=== PATIENT | female | born 1995 | race American Indian/Alaskan Native ===

== ENCOUNTER 2018-07-25 16:05 | Emergency (ER) | payer BC ==
[2018-07-25 16:19] VITALS: BP 132/77
[2018-07-25 17:52] LABS: HCG Qualitative,Urine Positive (Negative)
[2018-07-25 17:54] LABS: Bilirubin,Urine NEG (Negative); Blood,Urine NEG (Negative); Color,Urine Yellow (Yellow); Mucus,Urine FEW /HPF; Protein,Urine <15 mg/dL mg/dL (Negative)
== END 2018-07-25 20:35 | disposition left against medical advice (07) ==
LOC: ED 16:05
DX: R10.9 Unspecified abdominal pain (principal); Z53.21 Procedure and treatment not carried out due to patient leaving prior to being seen by health care provider
CPT/HCPCS: 81001; 81025

== ENCOUNTER 2018-08-21 09:01 | Emergency (ER) | payer BC, MEDICARE ==
--- NOTE | 2018-08-21 11:49 | Emergency Department Report ---
ED HPI - General Chief complaint: Vaginal Bleeding Stated complaint: 10WKS BLEEDING/CRAMPING Time Seen by Provider: 08/21/18 11:28 Source: patient Mode of arrival: Ambulatory Limitations: No Limitations - History of Present Illness Initial comments: This is a 23-year-old female nontoxic, well nourished in appearance, no acute signs of distress presents to the ED with c/o of vaginal bleeding x1 day. Patient stated yesterday she noticed some spotting this morning x3 occasions and heavier this morning. Patient stated she also has some pelvic cramping. Patient denies any abdominal pain. Patient denies any vaginal discharge or foul odor. Patient denies any nausea, vomiting, chest pain, shortness of breathe , fever, chills, headache, stiff neck, numbness, tingling. Patient denies any urinary symptoms. Patient denies any drug allergies or PMH. Patient stated she follows [facility] but has never had a ultrasound before. MD Complaint: vaginal bleeding -: days(s) (1) Location: pelvis Radiation: none Severity: mild Severity scale (0 -10): 3 Quality: cramping Consistency: intermittent Improves with: none Worsens with: none Associated symptoms: vaginal bleeding. denies: nausea/vomiting, vaginal discharge, abdominal pain, dysuria, headache, vision changes, malaise, dysparuenia, rash, seizure, shortness of breath, syncope, weakness Vaginal bleeding: light :: Yes Number of weeks : 10 Pre-khurram care: followed by OB - Related Data Previous Rx's Medication Instructions Recorded Last Taken Type Nitrofurantoin Beadle/M-Cryst 100 mg PO Q12HR #14 capsule 08/21/18 Unknown Rx [Macrobid CAP] 21/Iron Fu/Folic Acid 1 each PO DAILY #30 tablet 08/21/18 Unknown Rx [ Complete Caplet] Allergies Allergy/AdvReac Type Severity Reaction Status Date / Time shellfish derived Allergy Swelling Verified 08/21/18 09:44 ED Review of Systems ROS: Stated complaint: 10WKS BLEEDING/CRAMPING Other details as noted in HPI Constitutional: denies: chills, fever Eyes: denies: eye pain, eye discharge, vision change ENT: denies: ear pain, throat pain Respiratory: denies: cough, shortness of breath, wheezing Cardiovascular: denies: chest pain, palpitations Endocrine: no symptoms reported Gastrointestinal: denies: abdominal pain, nausea, diarrhea Genitourinary: abnormal menses. denies: urgency, dysuria, discharge Musculoskeletal: denies: back pain, joint swelling, arthralgia Skin: denies: rash, lesions Neurological: denies: headache, weakness, paresthesias Psychiatric: denies: anxiety, depression Hematological/Lymphatic: denies: easy bleeding, easy bruising ED Past Medical Hx - Past Medical History Previous Medical History?: No - Surgical History Past Surgical History?: Yes Additional Surgical History: Hernia rep - Social History Smoking Status: Never Smoker Substance Use Type: None - Medications Home Medications: Home Medications Medication Instructions Recorded Confirmed Last Taken Type Nitrofurantoin Beadle/M-Cryst 100 mg PO Q12HR #14 capsule 08/21/18 Unknown Rx [Macrobid CAP] 21/Iron Fu/Folic Acid 1 each PO DAILY #30 tablet 08/21/18 Unknown Rx [ Complete Caplet] ED Physical Exam - General Limitations: No Limitations General appearance: alert, in no apparent distress - Head Head exam: Present: atraumatic, normocephalic - Eye Eye exam: Present: normal appearance - ENT ENT exam: Present: mucous membranes moist - Neck Neck exam: Present: normal inspection - Respiratory Respiratory exam: Present: normal lung sounds bilaterally. Absent: respiratory distress, wheezes, rales, rhonchi, stridor, chest wall tenderness, accessory muscle use, decreased breath sounds, prolonged expiratory - Cardiovascular Cardiovascular Exam: Present: regular rate, normal rhythm, normal heart sounds. Absent: bradycardia, tachycardia, irregular rhythm, systolic murmur, diastolic murmur, rubs, gallop - GI/Abdominal GI/Abdominal exam: Present: soft, normal bowel sounds. Absent: distended, tenderness, guarding, rebound, rigid, diminished bowel sounds - Extremities Exam Extremities exam: Present: normal inspection, full ROM, normal capillary refill. Absent: tenderness - Back Exam Back exam: Present: normal inspection, full ROM. Absent: tenderness, CVA tenderness (R), CVA tenderness (L), paraspinal tenderness, vertebral tenderness - Neurological Exam Neurological exam: Present: alert, oriented X3, normal gait - Psychiatric Psychiatric exam: Present: normal affect, normal mood - Skin Skin exam: Present: warm, dry, intact, normal color. Absent: rash ED Course Vital Signs 08/21/18 09:44 Temperature 99.2 F Pulse Rate 91 H Respiratory 18 Rate Blood Pressure 133/69 O2 Sat by Pulse 99 Oximetry - Reevaluation(s) Reevaluation #1: 08/21/18 11:49 Patient is speaking in full sentences with no signs of distress noted. ED Medical Decision Making - Lab Data Result diagrams: 08/21/18 11:45 - Medical Decision Making This is a 23-year-old female presents with threatened miscarriage and UTI. Patient is stable and was examined by me. Normal abdominal exam. US OB obtained and dictated by the radiologist. Ua obtained. Quantative serum test obtained. Patient notified of the US report with no questions noted by the patient. RH factor positive. Labs within normal limits. Patient was referred to Follow-up with a [facility] in 3-5 days or if symptoms worsen and continue return to emergency room as soon as possible. At time of discharge, the patient does not seem toxic or ill in appearance. No acute signs of distress noted. Patient agrees to discharge treatment plan of care. No further questions noted by the patient. Critical care attestation.: If time is entered above; I have spent that time in minutes in the direct care of this critically ill patient, excluding procedure time. ED Disposition Clinical Impression: Threatened miscarriage UTI (urinary tract infection) Qualifiers: Urinary tract infection type: site unspecified Hematuria presence: with hematuria Qualified Code(s): N39.0 - Urinary tract infection, site not specified Disposition: DC-01 TO HOME OR SELFCARE Is pt being admited?: No Does the pt Need Aspirin: No Condition: Stable Instructions: Threatened Miscarriage (ED), Urinary Tract Infection in Women (ED ) Additional Instructions: Follow-up with a primary care/OBGYN doctor in 3-5 days or if symptoms worsen and continue return to emergency room as soon as possible. Prescriptions: Nitrofurantoin Beadle/M-Cryst [Macrobid CAP] 100 mg PO Q12HR #14 capsule 21/Iron Fu/Folic Acid [ Complete Caplet] 1 each PO DAILY #30 tablet Referrals: MARCUS MERRILL MD [Primary Care Provider] - 3-5 Days MIKHAIL CASTELLANO MD [Staff Physician] - 3-5 Days [facility] [Outside] - 3-5 Days [facility] [Provider Group] - 3-5 Days Forms: Work/School Release Form(ED)
[2018-08-21 11:59] LABS: Basophils % (Auto) 0.4 % (0.0-1.8); Eosinophils # (Auto) 0.2 K/mm3 (0.0-0.4); Eosinophils % (Auto) 2.1 % (0.0-4.3); Hematocrit 35.5 % (30.3-42.9); Hemoglobin 11.4 gm/dl (10.1-14.3); Lymphocytes % (Auto) 18.3 % (13.4-35.0); Mean Corpuscular HGB Conc 32 % (30-34); Mean Corpuscular Hemoglobin 26 pg (28-32); Mean Corpuscular Volume 80 fl (79-97); Monocytes # (Auto) 0.8 K/mm3 (0.0-0.8); Monocytes % (Auto) 6.9 % (0.0-7.3); Platelet Count 251 K/mm3 (140-440); Red Blood Count 4.41 M/mm3 (3.65-5.03); Red Cell Distribution Width 14.2 % (13.2-15.2)
[2018-08-21 13:21] LABS: Bacteria,Urine 1+ /HPF (Negative); Bilirubin,Urine NEG (Negative); Blood,Urine LG (Negative); Color,Urine Yellow (Yellow); Mucus,Urine FEW /HPF; Protein,Urine <15 mg/dL mg/dL (Negative)
--- NOTE | 2018-08-21 14:59 | Ultrasound Report ---
ULTRASOUND OB LESS THAN 14 WEEKS FETUS History: Vaginal bleeding. Technique: Transabdominal ultrasound. Findings: The uterus measures 10 x 9 x 9 cm. An intrauterine gestational sac containing a small pole and yolk sac is identified. Heart rate measures 166 beats per minutes. Amniotic fluid volume appears normal. The placenta is not yet identified. Greenevers-rump length measures 31.1 mm which correlates with a 10 week 0 day . The right ovary measures 3.4 x 2.8 x 2.9 cm. A 2.1 cm right ovarian cyst is identified. The left ovary measures 3.0 x 1.9 x 1.9 cm. No focal abnormality. Impression: Viable, single intrauterine as described. Right ovarian cyst.
[2018-08-21 16:53] VITALS: BP 143/74
== END 2018-08-21 16:40 | disposition home or self-care (01) ==
LOC: ED 09:01
DX: O20.0 Threatened abortion (principal); O23.41 Unspecified infection of urinary tract in pregnancy, first trimester; Z3A.10 10 weeks gestation of pregnancy; Z91.013 Allergy to seafood
CPT/HCPCS: 36415; 76801; 81001; 84702; 85025; 86850; 86900; 86901; 87086; 99284

== ENCOUNTER 2019-02-21 12:03 | Inpatient (IN) | payer MEDICAID ==
[2019-02-21] MEDS ORDERED: LACTATED RINGERS 500 ML IV ONE (12:17)
[2019-02-21 13:30] LABS: Bilirubin,Urine NEG (Negative); Blood,Urine MOD (Negative); Color,Urine Yellow (Yellow); Mucus,Urine FEW /HPF; Urobilinogen,Urine < 2.0 mg/dL (<2.0)
[2019-02-21] MEDS ORDERED: XYLOCAINE 2% INFILTRATI ONE (14:12)
[2019-02-21] MEDS ORDERED: BRETHINE SUB-Q PRN (14:12)
[2019-02-21] MEDS ORDERED: SUBLIMAZE IV PRN (14:12)
[2019-02-21] MEDS ORDERED: MINERAL OIL PO PRN (14:12)
[2019-02-21] MEDS ORDERED: AMPICILLIN/NS 2 GM/100 ML 2 GM/100 ML BAG IV ONE ×2 (14:17→14:21)
--- NOTE | 2019-02-21 14:19 | History and Physical Report ---
History of Present Illness Date of examination: 02/21/19 (pt in active labor @ 36 weeks) History of present illness: EDC Confirmation: 03/21/2019 Gestational Age: 19 5/7 weeks Past History : 3 Term Births: 1 Premature Births: 0 Living Children: 1 Mult. Births: 0 Prev : 0 Elect. Ab: 1 Spont. Ab: 0 Ectopics: 0 # 1 labor: no Hours of labor: 16 Anesthesia type: none Delivery location: [place] Name: Mark # 2 Delivery date: 2016 Delivery type: EAB Comments: Medical Past Medical History: Umbilical hernia Asthma Past Surgical History: Umbilical Hernia(2016) with mesh Family History Summary: Mother (biol.) - Has No Family History of Ovarvian Cancer - Entered On: 10/30/2018 Mother (biol.) - Has No Family History of Colon Cancer - Entered On: 10/30/2018 Mother (biol.) - Has No Family History of Breast Cancer - Entered On: 10/30/2018 Mother (biol.) - Has Family History of Hypertension - Entered On: 10/30/2018 Social History: Patient is single bf x one year. debut age 15, x 10 parters. gardisil Smoking History: Patient has never smoked. 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 debut age 15, x 10 parters. gardisil Smoking History: Patient has never smoked. 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 Infection History HIV Risk Eval: no Genetic History Congenital Heart Defect: Mom: no Dad: no Yesika Disease: Mom: no Dad: no Thalassemia Mom: no Dad: no Neural Tube Defect Mom: no Dad: no Down's Syndrome Mom: no Dad: no Christiano-Sachs Mom: no Dad: no Sickle Cell Disease/Trait Mom: no Dad: no Hemophilia Mom: no Dad: no Muscular Dystrophy Mom: no Dad: no Cystic Fibrosis Mom: no Dad: no [place] Chorea Mom: no Dad: no Mental Retardation Mom: no Dad: no Fragile X Mom: no Dad: no Other Genetic/Chromosomal Disorder Mom: no Dad: no Child w/other defect Mom: no Dad: no Enviromental Exposures Xray Exposure: no Medication, drug, or alcohol use since LMP: no Chemical/Other Exposure: no Exposure to Cat Liter: no Hx of Parvovirus (Fifth Disease): no Active Medications (reviewed today): None Current Allergies (reviewed today): * SHELL FISH (Critical) Past History - Obstetrical History Expected Date of Delivery: 03/21/19 Actual Gestation: 36 Week(s) 0 Day(s) : 3 Para: 1 Hx # Term Pregnancies: 1 Number of Pregnancies: 0 Spontaneous Abortions: 0 Induced : 1 Number of Living Children: 1 Medications and Allergies Allergies Allergy/AdvReac Type Severity Reaction Status Date / Time shellfish derived Allergy Severe Anaphylaxis Verified 12/23/18 19:57 Home Medications Medication Instructions Recorded Confirmed Last Taken Type 21/Iron Fu/Folic Acid 1 each PO DAILY #30 tablet 08/21/18 11/28/18 11/27/18 16:00 Rx [ Complete Caplet] Active Meds: Active Medications Ephedrine Sulfate (Ephedrine Sulfate) 10 mg IV Q2M PRN PRN Reason: Hypotension Fentanyl (Sublimaze) 100 mcg IV Q2H PRN PRN Reason: Labor Pain Lactated Ringer's (Lactated Ringers) 1,000 mls @ 125 mls/hr IV DIRECT ROSANNA Oxytocin/Sodium Chloride (Pitocin/Ns 20 Unit/1000ml Drip) 20 units in 1,000 mls @ 125 mls/hr IV DIRECT ROSANNA Ampicillin Sodium (Polycillin/Ns 2 Gm/100 Ml) 2 gm in 100 mls @ 100 mls/hr IV ONCE ONE; Protocol Stop: 02/21/19 15:16 Ampicillin Sodium (Ampicillin/Ns 1 Gm/50 Ml) 1 gm in 50 mls @ 100 mls/hr IV Q4HR ROSANNA; Protocol Lidocaine (Xylocaine 2%) 20 ml INFILTRATI ONCE ONE Stop: 02/21/19 14:13 Mineral Oil (Mineral Oil) 30 ml PO QHS PRN PRN Reason: Constipation Terbutaline Sulfate (Brethine) 0.25 mg SUB-Q ONCE PRN PRN Reason: Hyperstimulation/Hypertonicity - Vital Signs Vital signs: Vital Signs Temp Pulse Resp BP 98.8 F 129 H 20 134/70 02/21/19 12:23 02/21/19 12:23 02/21/19 12:23 02/21/19 12:23 Temp Pulse Resp BP Pulse Ox 98.8 F 123 H 20 133/60 02/21/19 12:23 02/21/19 13:27 02/21/19 12:23 02/21/19 13:27 - Physical Exam Breasts: Positive: deferred Cardiovascular: Regular rate, Normal S1, Normal S2 Lungs: Positive: Clear to auscultation, Normal air movement Abdomen: Positive: normal appearance, soft, normal bowel sounds. Negative: distention, tenderness Genitourinary (Female): Positive: normal external genitalia Vulva: both: normal Vagina: Positive: normal moisture. Negative: discharge Cervix: Negative: lesion, discharge Uterus: Positive: normal size, normal contour Adnexa: both: normal Anus/Rectum: Positive: normal perianal skin, heme negative. Negative: rectal mass, hemorrhoids Extremities: Positive: normal Deep Tendon Reflex Grade: Normal +2 - Obstetrical FHR: category 1 Uterine Contraction Monitor Mode: External Cervical Dilatation: 6 (rapid chg from Arrival) Cervical Effacement Percentage: 70 station: -1 Uterine Contraction Pattern: Regular Uterine Tone Measurement Phase: Resting Uterine Contraction Intensity: Moderate Results Result Diagrams: 02/21/19 14:25 Abnormal lab results 02/21/19 Range/Units Unknown Urine WBC (Auto) 29.0 H (0.0-6.0) /HPF All other labs normal. HBsAg Screen Negative Negative *1 RPR [A] Reactive Non Reactive *2 Tests: (2) RPR Qn+TP Abs ([id number]) RPR, Quant. [H] 1:16 NonRea<1:1 *3 ! Treponema pallidum Antibodies [A] Positive Negative *4 Tests: (3) Profile I ([id number]) Rubella Antibodies, IgG 1.77 index Immune >0.99 *5 Non-immune <0.90 Equivocal 0.90 - 0.99 Immune >0.99 ABO Grouping A *6 Rh Factor Positive *7 Please note: Prior records for this patient's ABO / Rh type are not available for additional verification. Antibody Screen Negative Negative *8 WBC 9.9 x10E3/uL 3.4-10.8 *9 RBC 3.88 x10E6/uL 3.77-5.28 *10 Hemoglobin [L] 10.0 g/dL 11.1-15.9 *11 Hematocrit [L] 31.2 % 34.0-46.6 *12 MCV 80 fL 79-97 *13 MCH [L] 25.8 pg 26.6-33.0 *14 MCHC 32.1 g/dL 31.5-35.7 *15 RDW 14.2 % 12.3-15.4 *16 Platelets 262 x10E3/uL 150-379 *17 Neutrophils 73 % Not Estab. *18 Lymphs 20 % Not Estab. *19 Monocytes 4 % Not Estab. *20 Eos 3 % Not Estab. *21 Basos 0 % Not Estab. *22 ! Immature Cells <No Reported Value> *23 Neutrophils (Absolute) [H] 7.2 x10E3/uL 1.4-7.0 *24 Lymphs (Absolute) 1.9 x10E3/uL 0.7-3.1 *25 Monocytes(Absolute) 0.4 x10E3/uL 0.1-0.9 *26 Eos (Absolute) 0.3 x10E3/uL 0.0-0.4 *27 Baso (Absolute) 0.0 x10E3/uL 0.0-0.2 *28 ! Immature Granulocytes 0 % Not Estab. *29 ! Immature Grans (Abs) 0.0 x10E3/uL 0.0-0.1 *30 ! NRBC <No Reported Value> *31 Hematology Comments: <No Reported Value> *32 Tests: (4) Thyroid Profile II ([id number]) TSH 0.603 uIU/mL 0.450-4.500 *33 Thyroxine (T4) 11.1 ug/dL 4.5-12.0 *34 T3 Uptake [L] 16 % 24-39 *35 Free Thyroxine Index 1.8 1.2-4.9 *36 Triiodothyronine (T3) [H] 200 ng/dL 71-180 *37 Tests: (5) Thyroxine (T4) Free, Direct, S ([id number]) T4,Free(Direct) 1.25 ng/dL 0.82-1.77 *38 Tests: (6) Panel 951963 ([id number]) HIV Screen 4th Generation wRfx Non Reactive Non Reactive *39 Tests: (7) HCV Ab w/Rflx to Verification ([id number]) ! HCV Ab <0.1 s/co ratio 0.0-0.9 *40 Tests: (8) Comment: ([id number]) ! Comment: SPRCS *41 Non reactive HCV antibody screen is consistent with no HCV infection, unless recent infection is suspected or other evidence exists to indicate HCV infection. Tests: (9) Urine Culture, Routine ([id number]) Urine Culture, Routine Final report *42 Tests: (10) Result ([id number]) ! Result 1 MUG *43 Mixed urogenital rosa maria 50,000-100,000 colony forming units per mL Tests: (11) Triiodothyronine (T3), Free ([id number]) Triiodothyronine (T3), Free 3.1 pg/mL 2.0-4.4 * Assessment and Plan 24yo @ 36 weeks in active labor and PPROM GBS unknown. RPR+ Treated per protocol @ [facility] Orders in EMR
[2019-02-21 14:58] LABS: Hematocrit 30.1 % (30.3-42.9); Hemoglobin 9.4 gm/dl (10.1-14.3); Mean Corpuscular HGB Conc 31 % (30-34); Mean Corpuscular Volume 74 fl (79-97); Platelet Count 275 K/mm3 (140-440); Red Blood Count 4.06 M/mm3 (3.65-5.03); Red Cell Distribution Width 15.4 % (13.2-15.2)
[2019-02-21] MEDS ORDERED: PITOCin/NS 20 UNIT/1000ML DRIP 20 UNITS/1,000 ML BAG IV SCH (15:00)
[2019-02-21] MEDS ORDERED: LACTATED RINGERS 1,000 ML IV SCH (15:00)
[2019-02-21] MEDS ORDERED: PERCOCET 5/325 PO PRN (16:00)
[2019-02-21] MEDS ORDERED: TUCKS PAD TP PRN (16:00)
[2019-02-21] MEDS ORDERED: MILK OF MAGNESIA PO PRN (16:00)
[2019-02-21] MEDS ORDERED: SODIUM CHLORIDE FLUSH SYRINGE 10 ML IV NR (16:00)
[2019-02-21] MEDS ORDERED: ZOFRAN IV PRN (16:00)
[2019-02-21] MEDS ORDERED: TYLENOL PO PRN (16:00)
[2019-02-21] MEDS ORDERED: LANSINOH TP PRN (16:00)
[2019-02-21] MEDS ORDERED: PHENERGAN PO PRN (16:00)
[2019-02-21] MEDS ORDERED: DULCOLAX PR PRN (16:00)
[2019-02-21] MEDS ORDERED: BENADRYL PO PRN (16:00)
--- NOTE | 2019-02-21 16:14 | Procedure Note ---
OB Delivery Note - Delivery Date of Delivery: 02/21/19 Loom Repairer: RIGO DANIELLE (precipitous delivery) Estimated blood loss: 300cc - Vaginal Delivery presentation: vertex Delivery position: OA Intrapartum events: labor-<37 weeks, precipitous labor- <3hr, other(please specify) (maternal syphilis) Delivery induction: none Delivery monitor: external FHT, external uterine Route of delivery: Delivery placenta: spontaneous Delivery cord: 3 umbilical vessels Episiotomy: none Delivery laceration: none Anesthesia: none Delivery comments: Called urgently to LDR Anticipate Delivery. NICU team present due to prematurity live born female over intact perineum Cord blood obtained Placenta and membrane delivered complete and intact, 3 vessel cord Pit IVFs 6/8, EBL 300, Wgt 5-15 Mom and baby remain LDR stable. - Infant A at 1 minute: 6 at 5 minutes: 8 Infant Gender: Female (wgt 5-15)
[2019-02-21] MEDS: IBUPROFEN PO SCH ×2 (17:28→23:49)
[2019-02-21] MEDS ORDERED: AMPICILLIN/NS 1 GM/50 ML 1 GM/50 ML BAG IV SCH (18:00)
[2019-02-22] MEDS: IBUPROFEN PO SCH ×4 (05:24→23:15)
[2019-02-22] MEDS ORDERED: BOOSTRIX IM ONE (06:00)
[2019-02-22] MEDS ORDERED: M-M-R II VACCINE SUB-Q ONE (06:00)
--- NOTE | 2019-02-22 08:54 | Progress Note ---
Assessment and Plan PPD 1. Fundus firm, ML, vaginal bleeding is minimal. Patient reports feeling well, no complaints, reports pain is well controlled with medications. VSSAF. Continue pathway. Subjective - Subjective Date of service: 02/22/19 Principal diagnosis: PPD1 Patient reports: appetite normal, voiding normally, pain well controlled, ambulating normally Objective - Vital Signs Latest vital signs: Vital Signs Temp Pulse Resp BP BP Pulse Ox 02/22/19 00:41 98.4 F 82 20 114/50 96 02/21/19 20:46 99.3 F 101 H 20 120/57 96 02/21/19 16:37 98.8 F 02/21/19 16:21 129 H 16 125/62 100 02/21/19 15:33 130 H 138/57 02/21/19 15:18 117 H 142/66 02/21/19 15:06 134 H 144/70 02/21/19 14:47 126 H 137/70 02/21/19 14:35 125 H 131/67 02/21/19 13:27 123 H 133/60 02/21/19 12:24 123 H 134/70 02/21/19 12:23 98.8 F 123 H 20 130/65 134/70 Intake and Output 02/21/19 02/22/19 02/22/19 23:59 07:59 15:59 Intake Total 240 Output Total 400 400 Balance -400 -160 Intake: Oral 240 Output: Urine 400 400 Void 400 400 Other: Total, Intake Amount 240 Total, Output Amount 400 400 - Exam Breasts: Present: normal Cardiovascular: Present: Regular rate, Normal S1, Normal S2 Lungs: Present: Clear to auscultation Abdomen: Present: normal appearance, soft, normal bowel sounds Uterus: Present: normal, firm Extremities: Present: normal Incision: Present: normal, dry, intact - Labs Labs: Abnormal lab results 02/21/19 02/21/19 02/22/19 Range/Units 14:25 Unknown 05:28 WBC 15.1 H (4.5-11.0) K/mm3 Hgb 9.4 L 8.0 L (10.1-14.3) gm/dl Hct 30.1 L 25.0 L (30.3-42.9) % MCV 74 L (79-97) fl MCH 23 L (28-32) pg RDW 15.4 H (13.2-15.2) % Urine WBC (Auto) 29.0 H (0.0-6.0) /HPF
[2019-02-22] MEDS: FEOSOL PO SCH (23:15)
[2019-02-23] MEDS: IBUPROFEN PO SCH ×2 (04:54→16:12)
--- NOTE | 2019-02-23 08:15 | Discharge Summary ---
Providers - Providers Date of Admission: 02/21/19 14:32 Date of discharge: 02/23/19 Attending physician: ZEUS MACDONALD Primary care physician: JHOANA RAMIREZ Hospitalization Reason for admission: premature labor and delivery Condition: Good Pertinent studies: RPR + 1:4, post delivery H&H 8.0/25.0 (asymptomatic anemia from blood loss, acute) Procedures: Hospital course: uncomplicated Disposition: DC- TO HOME OR SELFCARE - Discharge Diagnoses (1) Normal spontaneous vaginal delivery Status: Acute (2) Syphilis of mother during Status: Acute Core Measure Documentation - Palliative Care Palliative Care/ Comfort Measures: Not Applicable - Core Measures Any of the following diagnoses?: none Exam - Physical Exam Narrative exam: Pt reports all members of the care team are listening to her concerns and all of her preferences have been addressed. She declines any additional needs at the time of assessment. - Constitutional Vitals: Temp Pulse Resp BP Pulse Ox 98.3 F 83 18 126/78 98 02/23/19 08:03 02/23/19 08:03 02/23/19 08:03 02/23/19 08:03 02/23/19 08:03 General appearance: Present: no acute distress, well-nourished - EENT Eyes: Present: PERRL ENT: hearing intact, clear oral mucosa - Neck Neck: Present: supple, normal ROM - Respiratory Respiratory effort: normal Respiratory: bilateral: CTA - Cardiovascular Heart Sounds: Present: S1 & S2. Absent: rub, click - Extremities Extremities: pulses symmetrical, No edema Peripheral Pulses: within normal limits - Abdominal General gastrointestinal: Present: soft, non-tender, non-distended, normal bowel sounds Female genitourinary: Present: normal - Integumentary Integumentary: Present: clear, warm, dry - Musculoskeletal Musculoskeletal: gait normal, strength equal bilaterally - Psychiatric Psychiatric: appropriate mood/affect, intact judgment & insight - Neurologic Neurologic: CNII-XII intact, moves all extremities - Additional findings Additional findings: , lochia scant, fundus firm Plan Activity: no restrictions Diet: regular Follow up with: JHOANA RAMIREZ MD [Primary Care Provider] - 03/27/19 (Congratulations! Please call [phone] to schedule your visit in 4 weeks. Call for any questions or concerns. ) Prescriptions: Docusate Sodium [Colace] 100 mg PO BID PRN #60 capsule PRN Reason: Constipation Ferrous Sulfate [Feosol 325 MG tab] 325 mg PO BID #60 tablet
[2019-02-23] MEDS: FEOSOL PO SCH (10:12)
[2019-02-23 19:16] VITALS: BP 137/80
== END 2019-02-23 17:15 | disposition home or self-care (01) | DRG 774 ==
LOC: TRG 12:03 → LD 14:32 → OB 16:16
PROVIDERS: ADMIT Obstetrics & Gynecology; ATTEND Obstetrics & Gynecology
PROC: 10E0XZZ Delivery of Products of Conception, External Approach (ICD-10-PCS; principal; 2019-02-21)
DX: O42.913 Preterm premature rupture of membranes, unspecified as to length of time between rupture and onset of labor, third trimester (principal); O98.12 Syphilis complicating childbirth; O62.3 Precipitate labor; J45.909 Unspecified asthma, uncomplicated; O99.314 Alcohol use complicating childbirth; O99.52 Diseases of the respiratory system complicating childbirth; Z3A.36 36 weeks gestation of pregnancy; Z37.0 Single live birth; Z82.49 Family history of ischemic heart disease and other diseases of the circulatory system; Z72.89 Other problems related to lifestyle; Z91.013 Allergy to seafood; D62 Acute posthemorrhagic anemia; O90.81 Anemia of the puerperium
CPT/HCPCS: 36415; 81001; 85014; 85018; 85027; 86592; 86593; 86762; 86780; 86850; 86900; 86901; 88307; G0378; J0290; J2590; J7120

== ENCOUNTER 2019-09-06 13:43 | Emergency (ER) | payer MEDICAID ==
[2019-09-06 14:10] VITALS: BP 145/82
--- NOTE | 2019-09-06 14:35 | Event Note ---
ED Screening Note Date of service: 09/06/19 Time: 14:31 ED Screening Note: 24 y/o female c/o dizziness .LAWSON, V/N. Never followed up with a specialist. LMP 08/21/19 This initial assessment/diagnostic orders/clinical plan/treatment(s) is/are subject to change based on patients health status, clinical progression and re- assessment by fellow clinical providers in the ED. Further treatment and workup at subsequent clinical providers discretion. Patient/guardian urged not to elope from the ED as their condition may be serious if not clinically assessed and managed. Initial orders include:
--- NOTE | 2019-09-06 15:23 | Emergency Department Report ---
Chief Complaint: Dizziness Stated Complaint: VOMITIN/LIGHT HEADED Time Seen by Provider: 09/06/19 14:31 - HPI History of Present Illness: Ms. Wilkins is a 24 yo female who presents with lightheadedness and nausea for 2 days. Mild symptoms. Desires referral to neurologist for 2 years of headaches. I performed a medical screening examination. No evidence of acute emergent condition. I suspect early viral syndrome. Recommended supportive care. - Exam Vital Signs: Vital Signs 09/06/19 09/06/19 14:04 14:28 Temperature 98.4 F 98.4 F Pulse Rate 73 73 Respiratory 16 16 Rate Blood Pressure 145/82 145/82 O2 Sat by Pulse 98 98 Oximetry MSE screening note: Focused history and physical exam performed. Due to findings the following was ordered: ED Disposition for MSE Clinical Impression: Chronic headache Disposition: Z- MED SCREENING EXAM-LEFT Is pt being admited?: No Does the pt Need Aspirin: No Condition: Stable Referrals: BRITTANY ADEN MD [Staff Physician] - 3-5 Days
== END 2019-09-06 15:40 | disposition left against medical advice (07) ==
LOC: ED 13:43
DX: R51 Headache (principal); R42 Dizziness and giddiness; R11.0 Nausea
CPT/HCPCS: 99282

== ENCOUNTER 2021-04-26 00:06 | Emergency (ER) | payer BC, MEDICAID ==
[2021-04-26] MEDS ORDERED: IBUPROFEN 800 MG TAB PO ONE (01:54)
[2021-04-26] MEDS ORDERED: SULFAMETHOXAZOLE/TRIMETHOPRIM 800/160MG DS TAB PO ONE (01:54)
[2021-04-26] MEDS ORDERED: ONDANSETRON 4 MG ODT TAB PO ONE (01:54)
[2021-04-26] MEDS ORDERED: oxyCODONE /ACETAMINOPHEN 5-325MG TAB PO ONE (01:54)
[2021-04-26] MEDS ORDERED: LIDOCAINE (1%) 10 MG/1 ML VIAL 20 ML MDV INFILTRATI ONE (01:55)
[2021-04-26] MEDS ORDERED: CLINDAMYCIN 150 MG CAP PO ONE (02:54)
--- NOTE | 2021-04-26 03:32 | Emergency Department Report ---
ED General Adult HPI - General Chief complaint: Skin/Abscess/Foreign Body Stated complaint: LUMP ON LT THIGH/PAINFUL Source: patient Mode of arrival: Ambulatory Limitations: No Limitations - History of Present Illness Initial comments: Patient is a 26-year-old -[place] female with a history of asthma who presents to the ED with complaint of acute onset persistent severe painful swollen erythematous maculopapular rash on medial left upper thigh for the last 4 days. Patient states that the pain is worse with any movement or palpation. Patient also states that she has been taking [id number] medications with no relief. Patient denies fever, chills, nausea, vomiting, dizziness, syncope, traumatic injury, numbness and tingling or weakness of lower extremities bilaterally, abdominal pain or fall and low back pain. MD Complaint: swollen painful erythematous rash on left medial upper thigh -: Sudden, days(s) (4) Location: lower extremity (medial left upper thigh) Radiation: non-radiation Severity scale (0 -10): 8 Quality: burning, aching, sharp Consistency: constant Improves with: none Worsens with: movement Associated Symptoms: denies other symptoms, rash (Swollen, erythematous maculopapular rash on medial left upper thigh). denies: confusion, chest pain, cough, diaphoresis, fever/chills, headaches, loss of appetite, malaise, nausea/vomiting, seizure, shortness of breath, syncope, weakness Treatments Prior to Arrival: none - Related Data Previous Rx's Medication Instructions Recorded Last Taken Type 21/Iron Fu/Folic Acid 1 each PO DAILY #30 tablet 08/21/18 11/27/18 16:00 Rx [ Complete Caplet] Docusate Sodium [Colace] 100 mg PO BID PRN #60 capsule 02/22/19 Unknown Rx Ferrous Sulfate [Feosol 325 MG tab] 325 mg PO BID #60 tablet 02/22/19 Unknown Rx Acetaminophen/Codeine [Tylenol 1 tab PO Q6H PRN #12 tab 04/26/21 Unknown Rx /Codeine # 3 tab] Clindamycin [Clindamycin CAP] 300 mg PO Q8HR #60 capsule 04/26/21 Unknown Rx Ibuprofen [Motrin 800 MG tab] 800 mg PO Q8HR PRN #30 tablet 04/26/21 Unknown Rx Ondansetron [Zofran Odt] 4 mg PO Q6HR PRN #15 tab.rapdis 04/26/21 Unknown Rx Sulfamethoxazole/Trimethoprim 1 each PO Q12H #20 tablet 04/26/21 Unknown Rx [Bactrim DS TAB] Allergies Allergy/AdvReac Type Severity Reaction Status Date / Time shellfish derived Allergy Severe Anaphylaxis Verified 12/23/18 19:57 ED Review of Systems ROS: Stated complaint: LUMP ON LT THIGH/PAINFUL Other details as noted in HPI Constitutional: denies: chills, fever Eyes: denies: eye pain, eye discharge, vision change ENT: denies: ear pain, throat pain Respiratory: denies: cough, shortness of breath, wheezing Cardiovascular: denies: chest pain, palpitations Endocrine: no symptoms reported Gastrointestinal: denies: abdominal pain, nausea, diarrhea Genitourinary: denies: urgency, dysuria, discharge Musculoskeletal: arthralgia (Painful, swollen erythematous maculopapular rash on medial left upper thigh), myalgia. denies: back pain, joint swelling Skin: rash (Erythematous maculopapular painful swollen rash on medial left upper thigh). denies: lesions Neurological: denies: headache, weakness, paresthesias Psychiatric: denies: anxiety, depression Hematological/Lymphatic: denies: easy bleeding, easy bruising ED Past Medical Hx - Past Medical History Previous Medical History?: Yes Hx Hypertension: No Hx Diabetes: No Hx Deep Vein Thrombosis: No Hx Renal Disease: No Hx Sickle Cell Disease: No Hx Seizures: No Hx Asthma: Yes (last attack 2010) Hx HIV: No - Surgical History Past Surgical History?: Yes Additional Surgical History: Hernia repair - Social History Smoking Status: Never Smoker Substance Use Type: None - Medications Home Medications: Home Medications Medication Instructions Recorded Confirmed Last Taken Type 21/Iron Fu/Folic Acid 1 each PO DAILY #30 tablet 08/21/18 02/22/19 11/27/18 16:00 Rx [ Complete Caplet] Docusate Sodium [Colace] 100 mg PO BID PRN #60 capsule 02/22/19 Unknown Rx Ferrous Sulfate [Feosol 325 MG tab] 325 mg PO BID #60 tablet 02/22/19 Unknown Rx Acetaminophen/Codeine [Tylenol 1 tab PO Q6H PRN #12 tab 04/26/21 Unknown Rx /Codeine # 3 tab] Clindamycin [Clindamycin CAP] 300 mg PO Q8HR #60 capsule 04/26/21 Unknown Rx Ibuprofen [Motrin 800 MG tab] 800 mg PO Q8HR PRN #30 tablet 04/26/21 Unknown Rx Ondansetron [Zofran Odt] 4 mg PO Q6HR PRN #15 tab.rapdis 04/26/21 Unknown Rx Sulfamethoxazole/Trimethoprim 1 each PO Q12H #20 tablet 04/26/21 Unknown Rx [Bactrim DS TAB] ED Physical Exam - General Limitations: No Limitations General appearance: alert, in no apparent distress - Head Head exam: Present: atraumatic, normocephalic, normal inspection - Eye Eye exam: Present: normal appearance, PERRL, EOMI Pupils: Present: normal accommodation - ENT ENT exam: Present: normal exam, normal orophraynx, mucous membranes moist, TM's normal bilaterally, normal external ear exam - Neck Neck exam: Present: normal inspection, full ROM - Respiratory Respiratory exam: Present: normal lung sounds bilaterally. Absent: respiratory distress, wheezes, rales, rhonchi, stridor, chest wall tenderness, accessory muscle use, prolonged expiratory - Cardiovascular Cardiovascular Exam: Present: normal rhythm, tachycardia, normal heart sounds. Absent: systolic murmur, diastolic murmur, rubs, gallop - GI/Abdominal GI/Abdominal exam: Present: soft, normal bowel sounds. Absent: tenderness, guarding, rebound, hyperactive bowel sounds, hypoactive bowel sounds, organomegaly - Extremities Exam Extremities exam: Present: normal inspection, full ROM, tenderness (Palpable localized medial left upper thigh due to erythematous maculopapular fluctuant rash), normal capillary refill. Absent: pedal edema, joint swelling, calf tenderness - Back Exam Back exam: Present: normal inspection, full ROM. Absent: tenderness, CVA tenderness (L), muscle spasm, paraspinal tenderness, vertebral tenderness - Neurological Exam Neurological exam: Present: alert, oriented X3, CN II-XII intact, normal gait, reflexes normal - Psychiatric Psychiatric exam: Present: normal affect, normal mood - Skin Skin exam: Present: warm, dry, intact, normal color, rash (Swollen, erythematous maculopapular fluctuant severely tender rash on medial left upper thigh), erythema ED Course Vital Signs 04/26/21 04/26/21 00:58 02:58 Temperature 99.6 F Pulse Rate 101 H Respiratory 18 20 Rate Blood Pressure 136/72 [Left] O2 Sat by Pulse 99 Oximetry - I & D Left Upper Medial Thigh Type of Procedure: Simple Site: Medial left upper thigh Blade Size: 11 I & D Procedure: betadine prep, sterile drapes applied, sterile dressing applied, gauze wick placed (Iodoform gauze) Progress: The area was cleaned with normal saline solution. Lidocaine 1% solution was infiltrated around the area for local anesthesia. When anesthesia was fully achieved, scalpel blade #11 was used to incise the area. Copious thick purulent discharge drained from the wound. The wound was then debrided extensively with normal saline and loculations were broken with a hemostat. Iodoform quarter inch gauze was then packed into the wound and the wound dressed appropriately with 4 x 4 gauze and Tegaderm. Patient tolerated the procedure well. ED Medical Decision Making - Medical Decision Making This is a 26-year-old -[place] female with a history of asthma who presents to the ED with complaint of acute onset persistent severe painful swollen erythematous maculopapular rash on medial left upper thigh for the last 4 days. Patient states that the pain is worse with any movement or palpation. Patient also states that she has been taking [id number] medications with no relief. In the ED, patient is alert and oriented x3 and is not in any distress but appears to be in pain. Patient was treated for pain in the ED and was given initial oral antibiotics in the ED. When the pain was well controlled, the area was cleaned with normal saline solution. Lidocaine 1% solution was infiltrated around the area for local anesthesia. When anesthesia was fully achieved, scalpel blade #11 was used to incise the area. Copious thi ck purulent discharge drained from the wound. The wound was then debrided extensively with normal saline and if loculations were broken with a hemostat. Iodoform quarter inch gauze was then packed into the wound and the wound dressed appropriately with 4 x 4 gauze and Tegaderm. Patient tolerated the procedure well. On reevaluation, patient's pain is well controlled medications. Patient was therefore discharged home on pain medications and antibiotics and was advised return to the ED in 2 days for wound recheck and packing removal. Patient was otherwise advised to follow-up with her primary care physician in 7 to 10 days for reevaluation or return to the ED immediately if symptoms get worse. - Differential Diagnosis Cellulitis; folliculitis; cutaneous abscess; Critical care attestation.: If time is entered above; I have spent that time in minutes in the direct care of this critically ill patient, excluding procedure time. ED Disposition Clinical Impression: Acute folliculitis, Cutaneous abscess of left lower extremity, Cellulitis of left thigh Disposition: - TO HOME OR SELFCARE Is pt being admited?: No Does the pt Need Aspirin: No Condition: Stable Instructions: Skin Abscess, [id number], Cellulitis, Adult, [id number], Folliculitis Additional Instructions: Take medications with food, drink plenty of fluids and follow-up with your primary care physician in 7 to 10 days for reevaluation. Return to the ED immediately if symptoms get worse. Otherwise return to the ED in 2 days for wound recheck and packing removal. Prescriptions: Sulfamethoxazole/Trimethoprim [Bactrim DS TAB] 1 each PO Q12H #20 tablet Clindamycin [Clindamycin CAP] 300 mg PO Q8HR #60 capsule Ibuprofen [Motrin 800 MG tab] 800 mg PO Q8HR PRN #30 tablet PRN Reason: Pain Acetaminophen/Codeine [Tylenol /Codeine # 3 tab] 1 tab PO Q6H PRN #12 tab PRN Reason: Pain , Severe (7-10) Ondansetron [Zofran Odt] 4 mg PO Q6HR PRN #15 tab.rapdis PRN Reason: Nausea Referrals: [facility] [Provider Group] - 7-10 days Forms: Work/School Release Form(ED) Time of Disposition: 03:36 Print Language: NEPALI
[2021-04-26 04:48] VITALS: BP 132/75
== END 2021-04-26 05:09 | disposition home or self-care (01) ==
LOC: ED 00:06
DX: L02.416 Cutaneous abscess of left lower limb (principal); L73.9 Follicular disorder, unspecified; L03.116 Cellulitis of left lower limb; J45.909 Unspecified asthma, uncomplicated; Z98.890 Other specified postprocedural states; Z79.899 Other long term (current) drug therapy; Z91.013 Allergy to seafood
CPT/HCPCS: 99282; Q0162

== ENCOUNTER 2021-04-27 20:42 | Emergency (ER) | payer BC, MEDICAID ==
[2021-04-27 21:02] VITALS: BP 126/65
--- NOTE | 2021-04-27 22:41 | Emergency Department Report ---
ED General Adult HPI - General Chief complaint: Laceration/Recheck/Suture Stated complaint: PACKING REMOVAL Time Seen by Provider: 04/27/21 22:28 Source: patient Mode of arrival: Ambulatory Limitations: No Limitations - History of Present Illness Initial comments: 26-year-old -[place] female patient presents for packing removal today. Patient had packing replaced 2 days ago here in the ED for an abscess of the left upper thigh. She states compliance with the clindamycin and Bactrim that was prescribed. She denies any new pain, new swelling, redness, or fever/chills/sweats. No difficulty moving her leg per patient. She states ibuprofen is controlling her pain. - Related Data Previous Rx's Medication Instructions Recorded Last Taken Type 21/Iron Fu/Folic Acid 1 each PO DAILY #30 tablet 08/21/18 11/27/18 16:00 Rx [ Complete Caplet] Docusate Sodium [Colace] 100 mg PO BID PRN #60 capsule 02/22/19 Unknown Rx Ferrous Sulfate [Feosol 325 MG tab] 325 mg PO BID #60 tablet 02/22/19 Unknown Rx Acetaminophen/Codeine [Tylenol 1 tab PO Q6H PRN #12 tab 04/26/21 Unknown Rx /Codeine # 3 tab] Clindamycin [Clindamycin CAP] 300 mg PO Q8HR #60 capsule 04/26/21 Unknown Rx Ibuprofen [Motrin 800 MG tab] 800 mg PO Q8HR PRN #30 tablet 04/26/21 Unknown Rx Ondansetron [Zofran Odt] 4 mg PO Q6HR PRN #15 tab.rapdis 04/26/21 Unknown Rx Sulfamethoxazole/Trimethoprim 1 each PO Q12H #20 tablet 04/26/21 Unknown Rx [Bactrim DS TAB] Allergies Allergy/AdvReac Type Severity Reaction Status Date / Time shellfish derived Allergy Severe Anaphylaxis Verified 12/23/18 19:57 ED Review of Systems ROS: Stated complaint: PACKING REMOVAL Other details as noted in HPI Constitutional: denies: chills, fever, malaise Skin: denies: change in color ED Past Medical Hx - Past Medical History Previous Medical History?: Yes Hx Hypertension: No Hx Diabetes: No Hx Deep Vein Thrombosis: No Hx Renal Disease: No Hx Sickle Cell Disease: No Hx Seizures: No Hx Asthma: Yes (last attack 2010) Hx HIV: No Additional medical history: Hernia - Surgical History Past Surgical History?: Yes Additional Surgical History: Hernia repair - Social History Smoking Status: Never Smoker Substance Use Type: None - Medications Home Medications: Home Medications Medication Instructions Recorded Confirmed Last Taken Type 21/Iron Fu/Folic Acid 1 each PO DAILY #30 tablet 08/21/18 02/22/19 11/27/18 16:00 Rx [ Complete Caplet] Docusate Sodium [Colace] 100 mg PO BID PRN #60 capsule 02/22/19 Unknown Rx Ferrous Sulfate [Feosol 325 MG tab] 325 mg PO BID #60 tablet 02/22/19 Unknown Rx Acetaminophen/Codeine [Tylenol 1 tab PO Q6H PRN #12 tab 04/26/21 Unknown Rx /Codeine # 3 tab] Clindamycin [Clindamycin CAP] 300 mg PO Q8HR #60 capsule 04/26/21 Unknown Rx Ibuprofen [Motrin 800 MG tab] 800 mg PO Q8HR PRN #30 tablet 04/26/21 Unknown Rx Ondansetron [Zofran Odt] 4 mg PO Q6HR PRN #15 tab.rapdis 04/26/21 Unknown Rx Sulfamethoxazole/Trimethoprim 1 each PO Q12H #20 tablet 04/26/21 Unknown Rx [Bactrim DS TAB] ED Physical Exam - General Limitations: No Limitations General appearance: alert, in no apparent distress - Head Head exam: Present: atraumatic, normocephalic - Respiratory Respiratory exam: Absent: respiratory distress - Cardiovascular Cardiovascular Exam: Present: regular rate - Neurological Exam Neurological exam: Present: alert, oriented X3 - Psychiatric Psychiatric exam: Present: normal affect, normal mood - Skin Skin exam: Present: warm, dry, normal color. Absent: intact (Open healing left inner upper thigh abscess noted with packing in place; no surrounding erythema or drainage noted; mild tenderness to palpation noted), rash ED Course Vital Signs 04/27/21 04/27/21 20:58 22:41 Temperature 99.1 F Pulse Rate 86 Respiratory 18 Rate Blood Pressure 126/65 O2 Sat by Pulse 65 L 98 Oximetry ED Medical Decision Making - Medical Decision Making 26-year-old -[place] female patient presents for packing removal today. Patient had packing replaced 2 days ago here in the ED for an abscess of the left upper thigh. She states compliance with the clindamycin and Bactrim that was prescribed. She denies any new pain, new swelling, redness, or fever/chills/sweats. No difficulty moving her leg per patient. She states ibuprofen is controlling her pain. Packing removed without any immediate complication. Sterile dressing placed over wound. Discussed continued wound care and signs and symptoms that should prompt immediate return to the emergency department in detail with patient who verbalizes understanding. She is well-appearing and stable for discharge home. Critical care attestation.: If time is entered above; I have spent that time in minutes in the direct care of this critically ill patient, excluding procedure time. ED Disposition Clinical Impression: Abscess packing removal Disposition: DC-01 TO HOME OR SELFCARE Is pt being admited?: No Instructions: Wound Care, Adult Referrals: [facility] [Provider Group] - 3-5 Days
== END 2021-04-27 23:00 | disposition home or self-care (01) ==
LOC: ED 20:42
DX: L02.416 Cutaneous abscess of left lower limb (principal); Z48.00 Encounter for change or removal of nonsurgical wound dressing; J45.909 Unspecified asthma, uncomplicated; Z98.890 Other specified postprocedural states; Z79.1 Long term (current) use of non-steroidal anti-inflammatories (NSAID); Z79.2 Long term (current) use of antibiotics; Z79.899 Other long term (current) drug therapy; Z91.013 Allergy to seafood
CPT/HCPCS: 99282

== ENCOUNTER 2022-05-16 04:15 | Emergency (ER) | payer BC, MEDICAID ==
[2022-05-16 04:33] VITALS: BP 136/85
--- NOTE | 2022-05-16 10:48 | Electrocardiograph Report ---
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
== END 2022-05-17 07:38 | disposition left against medical advice (07) ==
LOC: ED 04:15
DX: R07.9 Chest pain, unspecified (principal); R11.10 Vomiting, unspecified; Z53.21 Procedure and treatment not carried out due to patient leaving prior to being seen by health care provider
CPT/HCPCS: 93005